=== PATIENT | female | born 1960 | race African-American/Black ===

== ENCOUNTER 2019-09-30 06:20 | Emergency (ER) | payer OTHER ==
[~2019-09-30] VITALS: Ht 167.6 cm; Wt 91.0 kg
[2019-09-30] MEDS ORDERED: DEXAMETHASONE 10 MG/ML VIAL IV ONE (09:45)
[2019-09-30] MEDS ORDERED: MECLIZINE 25MG TABLET PO ONE (09:45)
[2019-09-30] MEDS ORDERED: ONDANSETRON HCL 4MG/2ML INJ IV ONE (09:45)
[2019-09-30 09:53] LABS: BASOPHILS % 0.4 % (0.0-2.0); EOSINOPHILS % 0.4 % (0.0-5.0); HEMATOCRIT. 42.1 % (36.0-48.0); HEMOGLOBIN. 14.1 g/dL (12.0-16.0); MEAN CORPUSCULAR HEMOGLOBIN 29.3 pg (28.0-32.0); MEAN CORPUSCULAR VOLUME 87.7 fL (81.0-99.0); MEAN PLATELET VOLUME 9.6 fl (7.4-10.4); MONOCYTES % 4.2 % (2.0-8.0); PLATELET 196 x1000/uL (130-400); RED CELL DISTRIBUTION WIDTH 14.3 % (11.6-14.6)
[2019-09-30 09:57] LABS: CHLORIDE 103 mEq/L (98-107)
[2019-09-30 09:58] LABS: CLARITY URINE CLEAR (CLEAR); COLOR URINE YELLOW (YELLOW); KETONES URINE NEGATIVE (NEGATIVE); LEUKOCYTE ESTERASE URINE NEGATIVE (NEGATIVE); NITRITE URINE NEGATIVE (NEGATIVE); OCCULT BLOOD URINE NEGATIVE (NEGATIVE); PROTEIN URINE NEGATIVE (NEGATIVE); SPECIFIC GRAVITY URINE 1.016 (1.005-1.030); UROBILINOGEN URINE 0.2 E.U./dL (0.2-1.0)
[2019-09-30 09:59] LABS: PROTHROMBIN TIME 10.8 sec (9.6-11.0)
[2019-09-30] MEDS ORDERED: DEXAMETHASONE 4MG/ML 1ML VIAL ONE ×2 (10:00→10:11)
[2019-09-30 10:01] LABS: ETHANOL BLOOD < 10 mg/dL
[2019-09-30] MEDS ORDERED: MECLIZINE 25MG TABLET ONE (10:01)
[2019-09-30] MEDS ORDERED: ONDANSETRON HCL 4MG/2ML INJ ONE (10:02)
[2019-09-30 10:09] LABS: *BENZODIAZEPINES SCREEN URINE NEGATIVE (NEGATIVE)
[2019-09-30 10:10] LABS: *COCAINE SCREEN URINE NEGATIVE (NEGATIVE); CANNABINOID URINE SCREEN NEGATIVE (NEGATIVE); METHADONE URINE SCREEN NEGATIVE (NEGATIVE); OPIATES URINE SCREEN NEGATIVE (NEGATIVE); PHENCYCLIDINE URINE SCREEN NEGATIVE (NEGATIVE)
[2019-09-30] MEDS ORDERED: DEXAMETHASONE 10 MG/ML VIAL ONE (10:10)
[2019-09-30 10:11] LABS: *AMPHETAMINES SCREEN URINE NEGATIVE (NEGATIVE); *BARBITURATES SCREEN URINE NEGATIVE (NEGATIVE)
[2019-09-30] MEDS ORDERED: SODIUM CHLORIDE 0.9% 1,000 ML IV ONE (10:47)
[2019-09-30 14:21] VITALS: BP 121/78
== END 2019-09-30 14:22 | disposition home or self-care (01) ==
LOC: ER 06:20
DX: R42 Dizziness and giddiness (principal); E86.0 Dehydration; I10 Essential (primary) hypertension; Z88.2 Allergy status to sulfonamides
CPT/HCPCS: 36415; 70450; 71045; 80053; 80305; 80320; 81003; 83690; 84484; 85025; 85610; 93005; 96374; 96375; 99285; J1100; J2405; J7030; J8597; G0480